=== PATIENT | female | born 1945 | race African-American/Black ===

== ENCOUNTER 2019-07-15 16:09 | Inpatient (IN) | payer OTHER, MEDICARE ==
[~2019-07-15] VITALS: Ht 157.5 cm; Wt 52.6 kg
[~2019-07-15 16:09] MED LIST: ACETAMINOPHEN500 MG PO; AMLODIPINE BESY10 MG PO; BYSTOLIC10 MG PO; ULTRAM50 MG PO
--- OUTSIDE RECORDS SUMMARY | 2019-07-15 16:12 | XMS REPORT ---
Author Author [facility] Organization [facility] Address [address] [place] [address] Phone Unavailable Care Team Providers Care L[place] Joiner Name Role Phone Unavailable Unavailable Payers Payer Name Policy Type Policy Number Effective Date Expiration Date S ource Problems This patient has no known problems. Allergies, Adverse Reactions, Alerts Allergy Name Allergy Type Status Severity Reaction(s) Onset Date Inacti ve Date Treating Clinician Comments Source No Known Allergies DA Active U 2018-09-25 00:00:00 [facility] Medications This patient has no known medications. Procedures This patient has no known procedures. Results Test Description Test Time Test Comments Results Result Comments Source - DUP AB/PEL/SC/LTD 2019-01-25 13:09:00 Name: PALMER BLAKE [facility] : 1945 Age/S: 73 / F [address] [place] [address] Blvd Unit #: [id number] Loc: [place] [address] Phys: Dhaval Bañuelos MD Acct: [id number] Dis Date: Status: REG CLI PHONE #: [phone] Exam Date: 01/25/2019 1251 FAX #: [phone] Reason: MENOPAUSAL BLEEDING EXAMS: CPT CODE: [id number] DUP AB/PEL/SC/LTD 09578 Exam: Pelvic ultrasound. Exam date: January 25, 2019. CLINICAL HISTORY: Postmenopausal bleeding. COMPARISON: CT scan abdomen and pelvis September 25, 2018. Real-time transabdominal and transvaginal imaging of the pelvis with spectral Doppler analysis and color-flow imaging demonstrates a 9.9 x 6.2 x 6.7 cm uterus. The endometrium measures 4.4 cm in greatest AP dimension. The endometrium is moderately heterogeneous with minimal blood flow identified within the endometrial echoes. The right ovary was not convincingly identified either transabdominally or transvaginally. The left ovary measures 2.3 x 0.9 x 1.7 cm and has a normal sonographic appearance. Blood flow is identified within the ovary.. No significant free fluid or adnexal masses are identified. IMPRESSION: Thickened endometrium for a truly postmenopausal patient. at 1309 Reported and signed by: Angelita Hook M.D. CC: Jelly Marroquin MD; Dhaval Bañuelos MD Technologist: Vidya Pugh RDMS(BR)(AB) Trnscb Date/Time: 01/25/2019 (4579) [email or web address] Orig Print D/T: S: 01/25/2019 (4846) Probe: PAGE 1 Signed Report - US TRANSVAGINAL NON OB 2019-01-25 13:09:00 N chantelle: LOUPALMER [facility] : 1945 Age/S: 73 / F [address] [place] [address] Unit #: [id number] Loc: [place] [address] Phys: Dhaval Bañuelos MD Acct: [id number] Dis Date: Status: REG CLI PHONE #: [phone] Exam Date: 01/25/2019 1257 FAX #: [phone] Reason: N95.0, MENOPAUSAL BLEEDING. EXAMS: CPT CODE: [id number] [place] [address] Exam: Pelvic ultrasound. Exam date: January 25, 2019. CLINICAL HISTORY: Postmenopausal bleeding. COMPARISON: CT scan abdomen and pelvis September 25, 2018. Real-time transabdominal and transvaginal imaging of the pelvis with spectral Doppler analysis and color-flow imaging demonstrates a 9.9 x 6.2 x 6.7 cm uterus. The endometrium measures 4.4 cm in greatest AP dimension. The endometrium is moderately heterogeneous with minimal blood flow identified within the endometrial echoes. The right ovary was not convincingly identified either transabdominally or transvaginally. The left ovary measures 2.3 x 0.9 x 1.7 cm and has a normal sonographic appearance. Blood flow is identified within the ovary.. No significant free fluid or adnexal masses are identified. IMPRESSION: Thickened endometrium for a truly postmenopausal patient. at 1309 Reported and signed by: Angelita Hook M.D. CC: Jelly Marroquin MD; Dhaval Bañuelos MD Technologist: Vidya Pugh RDMS(BR)(AB) Trnscb Date/Time: 01/25/2019 (7288) [email or web address] Orig Print D/T: S: 01/25/2019 (6752) Probe: [id number] PAGE 1 Signed Report - US PELVIS COMPLETE 2019-01-25 13:09:00 Name: PALMER BLAKE [facility] : 1945 Age/S: 73 / F [address] [place] [address] Unit #: [id number] Loc: [place] [address] Phys: Dhaval Bañuelos MD Acct: [id number] Dis Date: Status: REG CLI PHONE #: [phone] Exam Date: 01/25/2019 1250 FAX #: [phone] Reason: N95.0, MENOPAUSAL BLEEDING. EXAMS: CPT CODE: [id number] US PELVIS COMPLETE 43804 Exam: Pelvic ultrasound. Exam date: January 25, 2019. CLINICAL HISTORY: Postmenopausal bleeding. COMPARISON: CT scan abdomen and pelvis September 25, 2018. Real-time transabdominal and transvaginal imaging of the pelvis with spectral Doppler analysis and color-flow imaging demonstrates a 9.9 x 6.2 x 6.7 cm uterus. The endometrium measures 4.4 cm in greatest AP dimension. The endometrium is moderately heterogeneous with minimal blood flow identified within the endometrial echoes. The right ovary was not convincingly identified either transabdominally or transvaginally. The left ovary measures 2.3 x 0.9 x 1.7 cm and has a normal sonographic appearance. Blood flow is identified within the ovary.. No significant free fluid or adnexal masses are identified. IMPRESSION: Thickened endometrium for a truly postmenopausal patient. at 1309 Reported and signed by: Angelita Hook M.D. CC: Jelly Marroquin MD; Dhaval Bañuelos MD Technologist: Vidya Pugh RDMS(BR)(AB) Trnscb Date/Time: 01/25/2019 (8405) [email or web address] Orig Print D/T: S: 01/25/2019 (0090) Probe: PAGE 1 Signed Report URINALYSIS COMPLETE 2018-09-25 09:18:00 Test Item UA COLOR (test code = COLU) YELLOW YEL/STRAW UA APPEARANCE (test code = APPU) SL CLOUDY CLEAR UA GLUCOSE DIPSTICK (test code = DGLUU) NEGATIVE NEGATIVE UA BILIRUBIN DIPSTICK (test code = BILU) NEGATIVE NEGATIVE UA KETONE DIPSTICK (test code = KETU) NEGATIVE NEGATIVE UA SPECIFIC GRAVITY (test code = SGU) 1.019 1.005-1.030 N UA BLOOD DIPSTICK (test code = SANDY) 3+ NEGATIVE A UA PH DIPSTICK (test code = EDWIGE) 5.0 5.0-7.0 N UA PROTEIN DIPSTICK (test code = PROU) NEGATIVE NEGATIVE UA UROBILINIOGEN DIPSTICK (test code = URO) 0.2 mg/dL 0.2-1.0 UA NITRITE DIPSTICK (test code = NADIA) NEGATIVE NEGATIVE UA LEUKOCYTE ESTERASE DIPSTICK (test code = LEUU) 3+ NEGA TIVE A UA WBC (test code = WBCU) >50 WBC/HPF 0-3 A UA RBC (test code = RBCU) >50 RBC/HPF 0-3 A UA BACTERIA (test code = BACU) NONE SEEN /HPF NONE SEEN UA SQUAMOUS CELLS (test code = SQU) 0-5 /HPF NONE SEEN UA HYALINE CAST (test code = HYALU) 3-5 /LPF NONE SEEN UA MUCUS (test code = MUCU) TRACE /LPF NONE SEEN COMMENTS: Clean CatchHEPATIC FUNCTION [id number] 09:16:00* Test Item Value Reference Range Interpretation Comments TOTAL PROTEIN (test code = PROT) 8.1 g/dL 6.4-8.2 N ALBUMIN (test code = ALB) 3.40 g/dL 3.4-5.0 N BILIRUBIN TOTAL (test code = BILT) 0.20 mg/dL 0.0-1.0 N BILIRUBIN DIRECT (test code = BILD) < 0.10 MG/DL 0.0-0.30 N BILIRUBIN INDIRECT (test code = BILIND) 0.10 MG/DL SGOT/AST (test code = AST) 18 IUnit/L 15-37 N SGPT/ALT (test code = ALT) 14 IUnit/L 15-65 L ALKALINE PHOSPHATASE TOTAL (test code = ALKP) 123 IUnit/L 20-125 N [id number] 09:16:00* Test Item Value Reference Range Interpretation Comments LIPASE (test code = LIP) 233 IUnit/L 73-393 N CBC W/AUTO [id number] 09:07:00* Test Item Value Reference Range Interpretation Comments WHITE BLOOD CELL (test code = WBC) 10.26 x10 3/uL 4.5-11.0 N RED BLOOD CELL (test code = RBC) 4.71 x10 6/uL 3.54-5.02 N HEMOGLOBIN (test code = HGB) 13.2 g/dL 11.0-15.0 N HEMATOCRIT (test code = HCT) 42.4 % 33.0-45.0 N MEAN CELL VOLUME (test code = MCV) 90.0 fL 81.0-99.0 N MEAN CELL HGB (test code = MCH) 28.0 pg 27.0-33.0 N MEAN CELL HGB CONCETRATION (test code = MCHC) 31.1 g/dL 33.0-37. 0 L RED CELL DISTRIBUTION WIDTH CV (test code = RDW) 16.1 % 11.5- 14.5 H RED CELL DISTRIBUTION WIDTH SD (test code = RDW-SD) 53.5 fL 37 .0-54.0 N PLATELET COUNT (test code = PLT) 306 x10 3/uL 150-400 N MEAN PLATELET VOLUME (test code = MPV) 10.0 fL 7.0-9.0 H NEUTROPHIL % (test code = NT%) 82.6 % 56.0-77.0 H IMMATURE GRANULOCYTE % (test code = IG%) 0.7 % 0.0-2.0 N LYMPHOCYTE % (test code = LY%) 9.2 % 14.0-32.0 L MONOCYTE % (test code = MO%) 6.0 % 4.8-9.0 N EOSINOPHIL % (test code = EO%) 0.9 % 0.3-3.7 N BASOPHIL % (test code = BA%) 0.6 % 0.0-2.0 N NUCLEATED RBC % (test code = NRBC%) 0.0 % 0-0 N NEUTROPHIL # (test code = NT#) 8.48 x10 3/uL 2.0-7.6 H IMMATURE GRANULOCYTE # (test code = IG#) 0.07 x10 3/uL 0.00-0.03 H LYMPHOCYTE # (test code = LY#) 0.94 x10 3/uL 1.0-3.8 L MONOCYTE # (test code = MO#) 0.62 x10 3/uL 0.1-0.8 N EOSINOPHIL # (test code = EO#) 0.09 x10 3/uL 0.0-0.2 N BASOPHIL # (test code = BA#) 0.06 x10 3/uL 0.0-0.2 N NUCLEATED RBC # (test code = NRBC#) 0.00 x10 3/uL 0.0-0.1 N MANUAL DIFF REQUIRED (test code = MDIFF) NO - CT ABD PELVIS [id number] 08:32:00 Name: PALMER BLAKE [facility] : 1945 Age/S: 73 / F [address] [place] [address] Unit #: [id number] Loc: [place] [address] Phys: Cynthia Che MD Acct: [id number] Dis Date: Status: REG ER PHONE #: [phone] Exam Date: 09/25/2018 0807 FAX #: [phone] Reason: diffuse abd pain in elderly pt EXAMS: CPT CODE: [id number] CT ABD PELVIS W/CONT 94021 EXAM: CT ABDOMEN AND PELVIS WITH CONTRAST DATE: 09/25/2018 7:09 AM : 1945; Age: 73 years y/o Female INDICATION: diffuse abd pain in elderly pt COMPARISON: None. TECHNIQUE: Volumetric CT of the abdomen and pelvis is acquired following the intravenous administration of contrast. Axial, coronal and sagittal images are provided. IV contrast: 100 mL Isovue Enteric contrast: None. DLP: 289 mGy-cm CT imaging performed at this location utilizes radiation dose optimization techniques which include one or more of the following: -Automated exposure control - Adjustment of the mA and/or kV according to patient size -Use of iterative reconstruction technique FINDINGS: Lower thorax: Clear. Liver: Normal. Gallbladder: No calcified stones or wall thickening. Adrenals: Normal. Kidneys and ureters: Atrophic right kidney is seen. Small simple cyst in the left midpole. Spleen: Normal. Pancreas: Normal. Gastrointestinal tract: Stomach: Not well distended which limits evaluation Small bowel: Normal. Appendix: Not seen. No inflammation. Colon: Normal. Peritoneum, mesentery and retroperitoneum: No free air, PAGE 1 Signed Report (CONTINUED) Name: PALMER BLAKE [facility] : 1945 Age/S: 73 / F [address] [place] [address] Unit #: [id number] Loc: [place] [address] Phys: Cynthia Che MD Acct: [id number] Dis Date: Status: REG ER PHONE #: [phone] Exam Date: 09/25/2018 0807 FAX #: [phone] Reason: diffuse abd pain in elderly pt EXAMS: CPT CODE: [id number] CT ABD PELVIS W/CONT 29068 < Continued> lymphadenopathy, ascites or loculated fluid. Reproductive organs: Central endometrial low-attenuation is seen measuring up to 3.7 cm. No adnexal mass. Bladder: Decompressed or not fully distended. Soft tissues: Normal. Bones: No acute abnormality. Age-related degenerative findings. IMPRESSION: 1. No acute intra-abdominal process. 2. Central low-attenuation within the endometrium measuring up to 3.7 cm. Endometrial malignancy cannot be excluded. Further evaluation with nonemergent pelvic ultrasound is recommended. 3. Atrophic right kidney. SL: [id number] at 0832 Reported and signed by: Unique Marroquin D.O. CC: Cynthia Che MD Technologist:Wili Monterroso, RT(R) CTDI: DLP: Trnscb Date/Time: 09/25/2018 (08) [email or web address] Orig Print D/T: S: 09/25/2018 (0882) PAGE 2 Signed Report CHEMISTRY 8 [id number] 07:46:00* Test Item Value Reference Range Interpretation Comments ISTAT-SODIUM (test code = NAP) MMOL/L 134-147 ISTAT-POTASSIUM (test code = KP) MMOL/L 3.4-5.0 ISTAT-CHLORIDE (test code = CLP) MMOL/L 100-108 ISTAT CARBON DIOXIDE (test code = ISTAT-CO2) mmol/L 21-33 N ISTAT CALCIUM IONIZED (test code = ISTAT-HORTENCIA) MG/DL 1.12-1.3 2 ISTAT-GLUCOSE (test code = GLUP) MG/DL 70-110 N ISTAT-BUN (test code = BUNP) MG/DL 7-18 N BEDSIDE CREATININE (test code = CREATBED) MG/DL 0.6-1.3 H GLOMERULAR FILTRATION RATE POC (test code = GFRBED) 47 ML/MIN CHEMISTRY 8 [id number] 07:46:00* Test Item Value Reference Range Interpretation Comments ISTAT-SODIUM (test code = NAP) 143 MMOL/L 134-147 N ISTAT-POTASSIUM (test code = KP) 4.0 MMOL/L 3.4-5.0 N ISTAT-CHLORIDE (test code = CLP) 110 MMOL/L 100-108 H Performed by certified cable ferry operator at [facility] ISTAT CARBON DIOXIDE (test code = ISTAT-CO2) 22.0 mmol/L 21-33 N ISTAT CALCIUM IONIZED (test code = ISTAT-HORTENCIA) 1.10 MG/DL 1.12-1.3 2 L ISTAT-GLUCOSE (test code = GLUP) 110 MG/DL 70-110 N ISTAT-BUN (test code = BUNP) 11 MG/DL 7-18 N BEDSIDE CREATININE (test code = CREATBED) 1.4 MG/DL 0.6-1.3 H GLOMERULAR FILTRATION RATE POC (test code = GFRBED) 47 ML/MIN
--- NOTE | 2019-07-15 17:12 | Emergency Department Note ---
History of Present Illnes History of Present Illness Chief Complaint: Abdominal Complaints History of Present Illness This is a 74 year old female . Chief Complaint Comment sent from dr's office with labs with wbc 24k. abd pain. aaox4. ambulatory.+diarrhea. abd pain lower. no uti s/s Historian: Patient, Family Member Arrival Mode: Car Onset (how long ago): day(s) (few days) Radiation: non-radiation, back, neck, extremity, abdomen, periumbilical, flank, proximal, distal, other Severity: mild Onset quality: gradual Duration (how long): day(s) (few days) Timing of current episode: constant Progression: unchanged Context: recent illness, recent surgery, recent immobilization, recent travel, trauma/injury, new medications, hx of DVT/PE, non-compliance w/ medications, other Relieving factors: none Exacerbating factors: none Associated symptoms: other (diarrhea ) Treatments prior to arrival: none (JOLENE NEVES DO) Historian: Patient, Family Member Context: trauma/injury (ERWIN KINNEY DO) Past Medical/Family History Physician Review I have reviewed the patient's past medical and family history. Any updates have been documented here. (JOLENE NEVES DO) Past Medical History Recent Fever: No Clinical Suspicion of Infectio: No New/Unexplained Change in Ment: No Other Medical History: diverticulitis (JOLENE NEVES DO) Social History Smoking Cessation: Never Smoker Alcohol Use: None Any Illegal Drug Use: No TB Exposure/Symptoms: No (JOLENE NEVES DO) Family History Family history of heart diseas: No (JOLENE NEVES, ) Other Any Pre-Existing Lines (PICC,: No (JOLENE NEVES, ) Review of Systems Review of Systems Constitutional: no symptoms EENTM: no symptoms Cardiovascular: no symptoms Respiratory: no symptoms Gastrointestinal: abdominal pain, diarrhea Genitourinary: no symptoms Musculoskeletal: no symptoms Neurological: no symptoms Psychological: no symptoms Endocrine: no symptoms Hematological/Lymphatic: no symptoms Review of other systems All other systems reviewed and negative. (JOLENE NEVES DO) Physical Exam Related Data Allergies: Coded Allergies: No Known Allergies (Unverified , 02/22/19) Triage Vital Signs Vital Signs Date Time Temp Pulse Resp B/P (MAP) Pulse Ox O2 Delivery O2 Flow Rate FiO2 07/15/19 16:22 97.8 78 14 101/54 99 Vital signs reviewed: Yes (JOLENE NEVES DO) Physical Exam CONSTITUTIONAL Constitutional: well-developed, well-nourished HENT HENT: normocephalic, atraumatic, oropharynx clear/moist, nose normal HENT L/R: left ext ear normal, right ext ear normal EYES Eyes: PERRL, conjunctivae normal NECK Neck: ROM normal PULMONARY Pulmonary: effort normal, breath sounds normal CARDIOVASCULAR Cardiovascular: regular rhythm, heart sounds normal, capillary refill normal, normal rate GASTROINTESTINAL Abdominal: soft, bowel sounds normal, tender (mnima lower abd sts feels hard to her) GENITOURINARY Genitourinary: exam deferred SKIN Skin: warm, dry MUSCULOSKELETAL Musculoskeletal: ROM normal NEUROLOGICAL Neurological: alert, oriented x 3, no gross motor or sensory deficits PSYCHOLOGICAL Psychological: mood/affect normal, judgement normal Exam - additional comments sts was sent to ed for eval had lab drawn few days ago has WBC 24 (JOLENE NEVES, ) Results Laboratory Laboratory Laboratory Tests Test 07/15/19 17:00 White Blood Count 25.65 x10e3/uL (4.8-10.8) Red Blood Count 2.85 x10e6/uL (3.6-5.1) Hemoglobin 6.9 g/dL (12.0-16.0) Hematocrit 23.2 % (34.2-44.1) Mean Corpuscular Volume 81.4 fL (81-99) Mean Corpuscular Hemoglobin 24.2 pg (28-32) Mean Corpuscular Hemoglobin Concent 29.7 g/dL (31-35) Red Cell Distribution Width 15.9 % (11.7-14.4) Platelet Count 537 x10e3/uL (140-360) Neutrophils (%) (Auto) 87.5 % (38.7-80.0) Lymphocytes (%) (Auto) 5.2 % (18.0-39.1) Monocytes (%) (Auto) 5.8 % (4.4-11.3) Eosinophils (%) (Auto) 0.0 % (0.0-6.0) Basophils (%) (Auto) 0.3 % (0.0-1.0) Neutrophils # (Auto) 22.4 (2.1-6.9) Lymphocytes # (Auto) 1.3 (1.0-3.2) Monocytes # (Auto) 1.5 (0.2-0.8) Eosinophils # (Auto) 0.0 (0.0-0.4) Basophils # (Auto) 0.1 (0.0-0.1) Absolute Immature Granulocyte (auto 0.30 x10e3/uL (0-0.1) Sodium Level 137 mmol/L (136-145) Potassium Level 5.0 mmol/L (3.5-5.1) Chloride Level 100 mmol/L (98-107) Carbon Dioxide Level 25 mmol/L (22-29) Anion Gap 17.0 mmol/L (8-16) Blood Urea Nitrogen 25 mg/dL (7-26) Creatinine 1.19 mg/dL (0.57-1.11) Estimat Glomerular Filtration Rate 54 ML/MIN (60-) BUN/Creatinine Ratio 21 (6-25) Glucose Level 105 mg/dL (74-118) Calcium Level 9.5 mg/dL (8.4-10.2) Total Bilirubin 0.2 mg/dL (0.2-1.2) Aspartate Amino Transf (AST/SGOT) 22 IU/L (5-34) Alanine Aminotransferase (ALT/SGPT) 14 IU/L (0-55) Alkaline Phosphatase 79 IU/L (40-150) Total Protein 7.0 g/dL (6.5-8.1) Albumin 1.7 g/dL (3.5-5.0) Globulin 5.3 g/dL (2.3-3.5) Albumin/Globulin Ratio 0.3 (0.8-2.0) Lab results reviewed: Yes (JOLENE NEVES DO) Lab results reviewed: Yes Laboratory comments Laboratory Tests Test 07/15/19 22:20 07/15/19 20:30 07/15/19 19:45 07/15/19 17:00 Lactic Acid Level 1.5 mmol/L (0.5-2.0) 2.3 mmol/L (0.5-2.0) White Blood Count 25.65 x10e3/uL (4.8-10.8) Red Blood Count 2.85 x10e6/uL (3.6-5.1) Hemoglobin 6.9 g/dL (12.0-16.0) Hematocrit 23.2 % (34.2-44.1) Mean Corpuscular Volume 81.4 fL (81-99) Mean Corpuscular Hemoglobin 24.2 pg (28-32) Mean Corpuscular Hemoglobin Concent 29.7 g/dL (31-35) Red Cell Distribution Width 15.9 % (11.7-14.4) Platelet Count 537 x10e3/uL (140-360) Neutrophils (%) (Auto) 87.5 % (38.7-80.0) Lymphocytes (%) (Auto) 5.2 % (18.0-39.1) Monocytes (%) (Auto) 5.8 % (4.4-11.3) Eosinophils (%) (Auto) 0.0 % (0.0-6.0) Basophils (%) (Auto) 0.3 % (0.0-1.0) Neutrophils # (Auto) 22.4 (2.1-6.9) Lymphocytes # (Auto) 1.3 (1.0-3.2) Monocytes # (Auto) 1.5 (0.2-0.8) Eosinophils # (Auto) 0.0 (0.0-0.4) Basophils # (Auto) 0.1 (0.0-0.1) Absolute Immature Granulocyte (auto 0.30 x10e3/uL (0-0.1) Sodium Level 137 mmol/L (136-145) Potassium Level 5.0 mmol/L (3.5-5.1) Chloride Level 100 mmol/L (98-107) Carbon Dioxide Level 25 mmol/L (22-29) Anion Gap 17.0 mmol/L (8-16) Blood Urea Nitrogen 25 mg/dL (7-26) Creatinine 1.19 mg/dL (0.57-1.11) Estimat Glomerular Filtration Rate 54 ML/MIN (60-) BUN/Creatinine Ratio 21 (6-25) Glucose Level 105 mg/dL (74-118) Calcium Level 9.5 mg/dL (8.4-10.2) Total Bilirubin 0.2 mg/dL (0.2-1.2) Aspartate Amino Transf (AST/SGOT) 22 IU/L (5-34) Alanine Aminotransferase (ALT/SGPT) 14 IU/L (0-55) Alkaline Phosphatase 79 IU/L (40-150) Creatine Kinase 10 IU/L (29-168) Creatine Kinase MB 0.20 ng/mL (0-5.0) Troponin I < 0.001 ng/mL (0-0.300) Total Protein 7.0 g/dL (6.5-8.1) Albumin 1.7 g/dL (3.5-5.0) Globulin 5.3 g/dL (2.3-3.5) Albumin/Globulin Ratio 0.3 (0.8-2.0) (ERWIN KINNEY DO) Imaging Imaging results reviewed: Yes Impressions [place] [address] Patient Name: PALMER BLAKE MR #: [id number] : 1945 Age/Sex: 74/F Req #: [id number] Adm Physician: Ordered by: JOLENE NEVES DO Report #: [id number] Location: ER Room/Bed: Procedure: [id number] CT/CT ABDOMEN/PELVIS W Exam Date: 07/15/19 Exam Time: 1814 REPORT STATUS: Signed EXAMINATION: CT of the abdomen and pelvis with contrast. TECHNIQUE: Spiral CT images of the abdomen and pelvis were performed from the lung bases to the lesser trochanters after the intravenous administration of 100 cc of Isovue 370 and the oral administration of dilute Gastrografin. Coronal and sagittal reformatted images were obtained. COMPARISON: None. CLINICAL HISTORY:Abdominal pain, elevated WBC count DISCUSSION: ABDOMEN/PELVIS: LOWER THORAX:7 mm calcified granuloma in the right lower lobe. HEPATOBILIARY: Wedge-shaped hypodensity adjacent to the falciform ligament (series 2, image 19), likely represents focal fatty infiltration. 3 mm calcified granuloma in hepatic segment VII (series 2, image 12). No other focal hepatic lesions. No intra or extrahepatic biliary ductal dilation. GALLBLADDER: No radio-opaque stones or sludge. No wall thickening. SPLEEN: No splenomegaly. PANCREAS: No focal masses or ductal dilatation. ADRENALS: 1.0 cm hypodense nodule in the right adrenal gland (best visualized on sagittal image 64). Left adrenal gland is unremarkable. KIDNEYS/URETERS: Atrophic right kidney with marked cortical thinning and moderate scarring. No stones, hydronephrosis or evidence of obstruction. Left kidney shows no stones, hydronephrosis or obstruction. No solid enhancing masses. No perinephric stranding. PELVIC ORGANS/BLADDER: Bladder is decompressed and difficult to assess, however, no definite focal lesions are noted. There is an approximately 11.6 x 18.6 x 13.6 cm predominantly solid mass in pelvis, which appears to involve the uterus and extending to the cervix, with central hypodensity, and scattered internal air foci consistent with necrosis and/or infection (sagittal image 73, axial image 60 and coronal image 45). The ovaries are not visualized. PERITONEUM/RETROPERITONEUM: No free air or fluid. LYMPH NODES: No intra-abdominal, retroperitoneal, pelvic or inguinal lymphadenopathy. VESSELS: The celiac trunk,superior and inferior mesenteric and bilateral renal arteries are patent The portal, superior mesenteric and splenic veins are patent. Atherosclerotic calcification of the distal abdominal aorta. GI TRACT: No bowel dilation or evidence of obstruction. Large amount of retained stool in the colon, likely reflecting constipation. No pericolonic inflammatory changes. Stomach is unremarkable. BONES AND SOFT TISSUE: No aggressive lytic or suspicious focal sclerotic lesions. Generalized osteopenia. Moderate right and mild left hip degenerative changes. Mild generalized soft tissue edema. IMPRESSION: 1. Large solid/partially necrotic mass in the pelvis, which appears to involve the uterus and extending to the cervix. This may represent cervical or endometrial neoplasm, or a leiomyosarcoma, if there is prior history of fibroids. A less likely alternative is an ovarian neoplasm. Multiple foci of air in the central and some peripheral portion of the mass may be secondary to necrosis, however, superimposed infection is a consideration. 2. Indeterminate 1.0 cm hypodense nodule in the right adrenal gland. This may further assessed with CT adrenal mass protocol on a nonemergent basis. 3. Atrophic right kidney. Signed by: Dr. Balbir Varghese M.D. on 07/15/2019 7:03 PM Dictated By: BALBIR VARGHESE MD 02 Transcribed By: CEASAR on 07/15/191902 COPY TO: JOLENE NEVES DO~ (ERWIN KINNEY DO) Critical Care Time Subsequent provider I assumed direction of critical care for this patient from another provider of my specialty. (JOLENE NEVES DO) Subsequent provider care assumed from Dr Neves at 1900 07/15/2019 (ERWIN KINNEY DO) Assessment & Plan Reassessment Reassessment time: 17:11 Reassessment 74y f presented to ed c/o abd pain diarrhea for several days - sent to ed w/ report of wbc 24- lab ct ordered / blood cultures lactic pt medicated w/ flagyl and zosyn (JOLENE NEVES DO) Assessment & Plan Final Impression: (1) Leukocytosis Assessment & Plan spoke w/ Dr Dangelo will admit (JOLENE NEVES DO) Final Impression: (1) Leukocytosis (2) Anemia (3) Pelvic cancer Assessment & Plan case d/w with Dr Herbert Dangelo and Dr Sheikh who agreed to see patient. Plan to admit to the hospital for further evaluation (ERWIN KINNEY DO) Depart Disposition: ADMITTED Last Vital Signs Date Time Temp Pulse Resp B/P (MAP) Pulse Ox O2 Delivery O2 Flow Rate FiO2 07/15/19 16:22 97.8 78 14 101/54 99 (JOLENE NEVES DO) Home Meds Reported Medications Nebivolol Hcl (BYSTOLIC) 10 Mg Tablet, 20 MG PO DAILY, TAB 02/22/19 Amlodipine Besylate (AMLODIPINE BESYLATE) 10 Mg Tablet, 10 MG PO DAILY, #30 TAB 02/22/19 Tramadol Hcl (ULTRAM) 50 Mg Tablet, 50 MG PO PRN, TAB 02/22/19 Acetaminophen (ACETAMINOPHEN) 500 Mg Tablet, 1000 MG PO PRN THERAPEUTICALLY SUBSTITUTED WITH ACETAMINOPHEN 325MG 02/22/19 Medications in the ED Diatrizoate Meglum/ Diatrizoate Sod 30 ml STK-MED ONCE PO ; Start 5/21/20 at 17:22; Stop 07/15/19 at 17:16; Status DC Metronidazole/ Sodium Chloride 100 ml @ 100 mls/hr ONCE ONCE IV Last administered on 07/15/19at 20:56; Admin Dose 100 MLS/HR; Start 07/15/19 at 17:56; Stop 07/15/19 at 18:55; Status DC Piperacillin Sod/ Tazobactam Sod 50 ml @ 50 mls/hr NOW ONCE IV Last administered on 07/15/19at 20:28; Admin Dose 50 MLS/HR; Start 07/15/19 at 18:15; Stop 07/15/19 at 19:14; Status DC (ERWIN KINNEY DO) JOLENE NEVES DO July 15, 2019 17:12 ERWIN KINNEY DO July 15, 2019 19:38
[2019-07-15 17:15] LABS: BASOPHILS # (AUTO) 0.1 (0.0-0.1); BASOPHILS % 0.3 % (0.0-1.0); HEMATOCRIT 23.2 % (34.2-44.1); LYMPHOCYTES # (AUTO) 1.3 (1.0-3.2); LYMPHOCYTES % 5.2 % (18.0-39.1); MEAN CORPUSCULAR HEMOGLOBIN 24.2 pg (28-32); MEAN CORPUSCULAR HGB CONC 29.7 g/dL (31-35); MEAN CORPUSCULAR VOLUME 81.4 fL (81-99); MONOCYTES # (AUTO) 1.5 (0.2-0.8); MONOCYTES % 5.8 % (4.4-11.3); NEUTROPHILS # (AUTO) 22.4 (2.1-6.9); NEUTROPHILS % 87.5 % (38.7-80.0); PLATELET COUNT 537 x10e3/uL (140-360); RED BLOOD COUNT 2.85 x10e6/uL (3.6-5.1); RED CELL DISTRIBUTION WIDTH 15.9 % (11.7-14.4)
[2019-07-15] MEDS ORDERED: DIATRIZOATE MEGL/DIATRIZOA SOD 30 ML BTL PO ONE (17:22)
[2019-07-15 17:26] LABS: HEMOGLOBIN 6.9 g/dL (12.0-16.0)
[2019-07-15 17:27] LABS: ALBUMIN 1.7 g/dL (3.5-5.0); ALBUMIN/GLOBULIN RATIO 0.3 (0.8-2.0); CALCIUM 9.5 mg/dL (8.4-10.2); CREATININE, SERUM 1.19 mg/dL (0.57-1.11)
[2019-07-15] MEDS ORDERED: METRONIDAZOLE 500MG/NS 100ML 100 ML IV ONE (17:56)
[2019-07-15] MEDS ORDERED: PIPER-TAZ 3.375 GM 50 ML IV ONE (18:15)
--- NOTE | 2019-07-15 19:07 | Diagnostic Imaging Report ---
EXAMINATION: CT of the abdomen and pelvis with contrast. TECHNIQUE: Spiral CT images of the abdomen and pelvis were performed from the lung bases to the lesser trochanters after the intravenous administration of 100 cc of Isovue 370 and the oral administration of dilute Gastrografin. Coronal and sagittal reformatted images were obtained. COMPARISON: None. CLINICAL HISTORY:Abdominal pain, elevated WBC count DISCUSSION: ABDOMEN/PELVIS: LOWER THORAX:7 mm calcified granuloma in the right lower lobe. HEPATOBILIARY: Wedge-shaped hypodensity adjacent to the falciform ligament (series 2, image 19), likely represents focal fatty infiltration. 3 mm calcified granuloma in hepatic segment VII (series 2, image 12). No other focal hepatic lesions. No intra or extrahepatic biliary ductal dilation. GALLBLADDER: No radio-opaque stones or sludge. No wall thickening. SPLEEN: No splenomegaly. PANCREAS: No focal masses or ductal dilatation. ADRENALS: 1.0 cm hypodense nodule in the right adrenal gland (best visualized on sagittal image 64). Left adrenal gland is unremarkable. KIDNEYS/URETERS: Atrophic right kidney with marked cortical thinning and moderate scarring. No stones, hydronephrosis or evidence of obstruction. Left kidney shows no stones, hydronephrosis or obstruction. No solid enhancing masses. No perinephric stranding. PELVIC ORGANS/BLADDER: Bladder is decompressed and difficult to assess, however, no definite focal lesions are noted. There is an approximately 11.6 x 18.6 x 13.6 cm predominantly solid mass in pelvis, which appears to involve the uterus and extending to the cervix, with central hypodensity, and scattered internal air foci consistent with necrosis and/or infection (sagittal image 73, axial image 60 and coronal image 45). The ovaries are not visualized. PERITONEUM/RETROPERITONEUM: No free air or fluid. LYMPH NODES: No intra-abdominal, retroperitoneal, pelvic or inguinal lymphadenopathy. VESSELS: The celiac trunk,superior and inferior mesenteric and bilateral renal arteries are patent The portal, superior mesenteric and splenic veins are patent. Atherosclerotic calcification of the distal abdominal aorta. GI TRACT: No bowel dilation or evidence of obstruction. Large amount of retained stool in the colon, likely reflecting constipation. No pericolonic inflammatory changes. Stomach is unremarkable. BONES AND SOFT TISSUE: No aggressive lytic or suspicious focal sclerotic lesions. Generalized osteopenia. Moderate right and mild left hip degenerative changes. Mild generalized soft tissue edema. IMPRESSION: 1. Large solid/partially necrotic mass in the pelvis, which appears to involve the uterus and extending to the cervix. This may represent cervical or endometrial neoplasm, or a leiomyosarcoma, if there is prior history of fibroids. A less likely alternative is an ovarian neoplasm. Multiple foci of air in the central and some peripheral portion of the mass may be secondary to necrosis, however, superimposed infection is a consideration. 2. Indeterminate 1.0 cm hypodense nodule in the right adrenal gland. This may further assessed with CT adrenal mass protocol on a nonemergent basis. 3. Atrophic right kidney. Signed by: Dr. Wallace Varghese M.D. on 07/15/2019 7:03 PM
[2019-07-15] MEDS ORDERED: MORPHINE SULFATE 2 MG/ML SYR 1ML IV PRN (20:00)
[2019-07-15] MEDS ORDERED: ASPIRIN 81 MG CHEW TAB PO ONE (20:00)
--- OUTSIDE RECORDS SUMMARY | 2019-07-15 20:03 | XMS REPORT ---
Author Author [facility] t Organization [facility] Address [address] [place] [address] Phone Unavailable Care Team Providers Care Instrument Designer Name Role Phone Joesph NEVES Attphyjoesph Unavailable Payers Payer Name Policy Type Policy Number Effective Date Expiration Date S ource Problems This patient has no known problems. Allergies, Adverse Reactions, Alerts Allergy Name Allergy Type Status Severity Reaction(s) Onset Date Inacti ve Date Treating Clinician Comments Source No Known Allergies DA Active U 2018-09-25 00:00:00 [facility] Medications This patient has no known medications. Procedures This patient has no known procedures. Results Test Description Test Time Test Comments Results Result Comments Source CT ABDOMEN/PELVIS W 2019-07-15 18:49:00 [facility] [address] [place], [place] [address] Patient Name: PALMER BLAKE MR #: [id number] : 1945 Age/Sex: 74/F Req #: [id number] Adm Physician: Ordered by: JOLENE NEVSE DO Report #: [id number] Location: ER Room/Bed: Procedure: [id number] CT/CT ABDOMEN/PELVIS W Exam Date: 07/15/19 Exam Time: 1814 REPORT STATUS: Signed EXAMINATION: CT of the abdomen and pelvis with contrast. TECHNIQUE: Spiral CT images of the abdomen and pelvis were performed from the lung bases to the lesser trochanters after the intravenous administration of 100 cc of Isovue 370 and the oral administration of dilute Gastrografin. Coronal and sagittal reformatted images were obtained. COMPARISON: None. CLINICAL HISTORY:Abdominal pain, elevated WBC count DISCUSSION: ABDOMEN/PELVIS: LOWER THORAX:7 mm calcified granuloma in the right lower lobe. HEPATOBILIARY: Wedge-shaped hypodensity adjacent to the falciform ligament (series 2, image 19), likely represents focal fatty infiltration. 3 mm calcified granuloma in hepatic segment VII (series 2, image 12). No other focal hepatic lesions. No intra or extrahepatic biliary ductal dilation. GALLBLADDER: No radio-opaque stones or sludge. No wall thickening. SPLEEN: No splenomegaly. PANCREAS: No focal masses or ductal dilatation. ADRENALS: 1.0 cm hypodense nodule in the right adrenal gland (best visualized on sagittal image 64). Left adrenal gland is unremarkable. KIDNEYS/URETERS: Atrophic right kidney with marked cortical thinning and moderate scarring. No stones, hydronephrosis or evidence of obstruction. Left kidney shows no stones, hydronephrosis or obstruction. No solid enhancing masses. No perinephric stranding. PELVIC ORGANS/BLADDER: Bladder is decompressed and difficult to assess, however, no definite focal lesions are noted. There is an approximately 11.6 x 18.6 x 13.6 cm predominantly solid mass in pelvis, which appears to involve the uterus and e xtending to the cervix, with central hypodensity, and scattered internal air foci consistent with necrosis and/or infection (sagittal image 73, axial image 60 and coronal image 45). The ovaries are not visualized. PERITONEUM/RETROPERITONEUM: No free air or fluid. LYMPH NODES: No intra- abdominal, retroperitoneal, pelvic or inguinal lymphadenopathy. VESSELS: The celiac trunk,superior and inferior mesenteric and bilateral renal arteries are patent The portal, superior mesenteric and splenic veins are patent. Atherosclerotic calcification of the distal abdominal aorta. GI TRACT: No bowel dilation or evidence of obstruction. Large amount of retained stool in the colon, likely reflecting constipation. No pericolonic inflammatory changes. Stomach is unremarkable. BONES AND SOFT TISSUE: No aggressive lytic or suspicious focal sclerotic lesions. Generalized osteopenia. Moderate right and mild left hip degenerative changes. Mild generalized soft tissue edema. IMPRESSION: 1. Large solid/partially necrotic mass in the pelvis, which appears to involve the uterus and extending to the cervix. This may represent cervical or endometrial neoplasm, or a leiomyosarcoma, if there is prior history of fibroids. A less likely alternative is an ovarian neoplasm. Multiple foci of air in the central and some peripheral portion of the mass may be secondary to necrosis, however, superimposed infection is a consideration. 2. Indeterminate 1.0 cm hypodense nodule in the right adrenal gland. This may further assessed with CT adrenal mass protocol on a nonemergent basis. 3. Atrophic right kidney. Signed by: Dr. Wallace Varghese M.D. on 07/15/2019 7:03 PM Dictated By: WALLACE VARGHESE MD 02 Transcribed By: CEASAR on 07/15/191902 COPY TO: JOLENE NEVES DO - DUP AB/PEL/SC/LTD 2019-01-25 13:09:00 Name: PALMER BLAKE [facility] : 1945 Age/S: 73 / F [address] [place] [address] Unit #: [id number] Loc: [place] [address] Phys: Dhaval Bañuelos MD Acct: [id number] Dis Date: Status: REG CLI PHONE #: [phone] Exam Date: 01/25/2019 1251 FAX #: [phone] Reason: MENOPAUSAL BLEEDING EXAMS: CPT CODE: [id number] DUP AB/PEL/SC/LTD 84952 Exam: Pelvic ultrasound. Exam date: January 25, [...] Technologist: Vidya Pugh RDMS(BR)(AB) Trnscb Date/Time: 01/25/2019 (9345) t.CER Orig Print D/T: S: 01/25/2019 (0561) Probe: PAGE 1 Signed Report - US TRANSVAGINAL NON OB 2019-01-25 13:09:00 N chantelle: PALMER BLAKE [facility] : 1945 Age/S: 73 / F [address] [place] [address] Unit #: [id number] Loc: [place] [address] Phys: Dhaval Bañuelos MD Acct: [id number] Dis Date: Status: REG CLI PHONE #: [phone] Exam Date: 01/25/2019 1250 FAX #: [phone] Reason: N95.0, MENOPAUSAL BLEEDING. EXAMS: CPT CODE: [id number] [place] [address] Exam: Pelvic ultrasound. Exam date: January 25, [...] Technologist: Vidya Pugh RDMS(BR)(AB) Trnscb Date/Time: 01/25/2019 (2299) t.SDR.CER Orig Print D/T: S: 01/25/2019 (1312) Probe: [id number] PAGE 1 Signed Report - US PELVIS COMPLETE 2019-01-25 13:09:00 Name: PALMER BLAKE [facility] : 1945 Age/S: 73 / F [address] [place] [address] Unit #: [id number] Loc: [place] [address] Phys: Dhaval Bañuelos MD Acct: [id number] Dis Date: Status: REG CLI PHONE #: [phone] Exam Date: 01/25/2019 1250 FAX #: [phone] Reason: N95.0, MENOPAUSAL BLEEDING. EXAMS: CPT CODE: [id number] US PELVIS COMPLETE [address]2410 Exam: Pelvic ultrasound. Exam date: January 25, [...] Technologist: Vidya Pugh RDMS(BR)(AB) Trnscb Date/Time: 01/25/2019 (5427) Raad Orig Print D/T: S: 01/25/2019 (8549) Probe: PAGE 1 Signed Report URINALYSIS COMPLETE [...] /LPF NONE SEEN COMMENTS: Clean CatchHEPATIC FUNCTION [id number] 09:16:00* Test Item Value Reference Range Interpretation [...] code = ALKP) 123 IUnit/L 20-125 N [id number] 09:16:00* Test Item Value Reference Range Interpretation Comments LIPASE (test code = LIP) 233 IUnit/L 73-393 N CBC W/AUTO [id number] 09:07:00* Test Item Value Reference Range Interpretation [...] = MDIFF) NO - CT ABD PELVIS [id number] 08:32:00 Name: PALMER BLAKE [facility] : 1945 Age/S: 73 / F [address] [place] [address] Unit #: [id number] Loc: [place] [address] Phys: Cynthia Che MD Acct: [id number] Dis Date: Status: REG ER PHONE #: [phone] Exam Date: 09/25/2018 0807 FAX #: [phone] Reason: diffuse abd pain in elderly pt EXAMS: CPT CODE: [id number] CT ABD PELVIS W/CONT 78383 EXAM: CT ABDOMEN AND PELVIS WITH CONTRAST [...] 1 Signed Report (CONTINUED) Name: PALMER BLAKE [facility] : 1945 Age/S: 73 / F [address] [place] [address] Unit #: [id number] Loc: [place] [address] Phys: Cynthia Che MD Acct: [id number] Dis Date: Status: REG ER PHONE #: [phone] Exam Date: 09/25/2018806 FAX #: [phone] Reason: diffuse abd pain in elderly pt EXAMS: CPT CODE: [id number] CT ABD PELVIS W/CONT 48505 < Continued> lymphadenopathy, ascites or loculated fluid. [...] is recommended. 3. Atrophic right kidney. SL: [id number] at 0832 Reported and signed by: Unique Marroquin D.O. CC: Cynthia Che MD Technologist:Wili Monterroso, (R) CTDI: DLP: Trnscb Date/Time: 09/25/2018 (0832) [email or web address] Orig Print D/T: S: 09/25/2018 (0835) PAGE 2 Signed Report CHEMISTRY 8 [id number] 07:46:00* Test Item Value Reference Range Interpretation [...] code = GFRBED) 47 ML/MIN CHEMISTRY 8 [id number] 07:46:00* Test Item Value Reference Range Interpretation Comments ISTAT-SODIUM (test code = NAP) 143 MMOL/L 134-147 N ISTAT-POTASSIUM (test code = KP) 4.0 MMOL/L 3.4-5.0 N ISTAT-CHLORIDE (test code = CLP) 110 MMOL/L 100-108 H Performed by certified bullet assembly press setter operator at [facility] ISTAT CARBON DIOXIDE (test code = ISTAT-CO2) [...]
[2019-07-15] MEDS ORDERED: SODIUM CHLORIDE 0.9% 1000ML 1,000 ML IV STA (20:13)
[2019-07-15] MEDS ORDERED: SODIUM CHLORIDE 0.9% 250ML 250 ML IV ONE (20:15)
[2019-07-15 20:23] LABS: CREATINE KINASE 10 IU/L (29-168)
[2019-07-15] MEDS: ONDANSETRON HCL INJ 2MG/ML 2ML 2 MG/ML VIAL IV PRN (20:57)
[2019-07-15] MEDS: MORPHINE SULFATE INJ 4 MG/ML INJ 1ML IV PRN (20:57)
[2019-07-15] MEDS: SODIUM CHLORIDE 0.9% 1000ML 1,000 ML IV SCH (23:04)
--- NOTE | 2019-07-15 23:23 | NUR ---
REPORT RECIEVED FROM CARMELITA JARVIS, BLOOD UNITS ARE NOT READY AT THIS TIME, LAB WAS CALLED FOR AN ESTIMATED TIME OF READINESS.
[2019-07-16 02:16] LABS: BACTERIA,URINE MODERATE /HPF; COLOR,URINE YELLOW (YELLOW); EPITHELIAL CELLS,URINE FEW /LPF; RBC,URINE 21-50 /HPF (0-5); RENAL EPITHELIAL CELLS,URINE FEW; WBC,URINE (MAN) 21-50 /HPF (0-5)
[2019-07-16 02:17] LABS: BILIRUBIN,URINE NEGATIVE (NEGATIVE); CLARITY,URINE CLOUDY (CLEAR); KETONES,URINE NEGATIVE (NEGATIVE); LEUKOCYTE ESTERASE ,URINE 2+ (NEGATIVE); NITRITE,URINE NEGATIVE (NEGATIVE); PROTEIN,URINE DIPSTICK TRACE (NEGATIVE); URINE UROBILINOGEN 0.2 mg/dL (0.2 - 1)
[2019-07-16] MEDS ORDERED: SODIUM CHLORIDE 0.9% 250ML 250 ML ONE (02:32)
--- NOTE | 2019-07-16 04:27 | NUR ---
TWO BLOOD TRANSFUSION RECORDS COMPLETED AND PLACED ON CHART. PATIENT IN BED SLEEPING, NO DISTRESS NOTED.
[2019-07-16] MEDS: SODIUM CHLORIDE 0.9% 1000ML 1,000 ML IV SCH (04:29)
[2019-07-16 06:19] LABS: BASOPHILS # (AUTO) 0.1 (0.0-0.1); BASOPHILS % 0.3 % (0.0-1.0); EOSINOPHILS % 0.1 % (0.0-6.0); HEMATOCRIT 27.9 % (34.2-44.1); HEMOGLOBIN 8.6 g/dL (12.0-16.0); LYMPHOCYTES # (AUTO) 1.2 (1.0-3.2); LYMPHOCYTES % 4.8 % (18.0-39.1); MEAN CORPUSCULAR HEMOGLOBIN 25.8 pg (28-32); MEAN CORPUSCULAR HGB CONC 30.8 g/dL (31-35); MEAN CORPUSCULAR VOLUME 83.8 fL (81-99); MONOCYTES # (AUTO) 1.5 (0.2-0.8); MONOCYTES % 6.3 % (4.4-11.3); NEUTROPHILS # (AUTO) 21.2 (2.1-6.9); NEUTROPHILS % 87.3 % (38.7-80.0); PLATELET COUNT 413 x10e3/uL (140-360); RED BLOOD COUNT 3.33 x10e6/uL (3.6-5.1); RED CELL DISTRIBUTION WIDTH 16.4 % (11.7-14.4)
--- NOTE | 2019-07-16 06:39 | NUR ---
REPORT GIVEN TO SHEILA JARVIS
[2019-07-16 06:44] LABS: ALANINE AMINOTRANSFERASE 12 IU/L (0-55); ALBUMIN 1.6 g/dL (3.5-5.0); ALBUMIN/GLOBULIN RATIO 0.3 (0.8-2.0); ALKALINE PHOSPHATASE 70 IU/L (40-150); ANION GAP 13.4 mmol/L (8-16); BLOOD UREA NITROGEN 20 mg/dL (7-26); BUN/CREATININE RATIO 21 (6-25); CALCIUM 8.7 mg/dL (8.4-10.2); CARBON DIOXIDE 23 mmol/L (22-29); CHLORIDE 103 mmol/L (98-107); CREATININE, SERUM 0.95 mg/dL (0.57-1.11); EST GLOMERULAR FILTRATION RATE > 60 ML/MIN (60-); GLUCOSE 69 mg/dL (74-118); POTASSIUM 4.4 mmol/L (3.5-5.1); SODIUM 135 mmol/L (136-145)
[2019-07-16 06:55] LABS: CREATINE KINASE 22 IU/L (29-168)
[2019-07-16 07:35] LABS: ANISOCYTOSIS SLIGHT; LYMPHOCYTES % (MANUAL) 4 % (19-48); MONOCYTES % (MANUAL) 4 % (3.4-9.0); NEUTROPHILS % (MANUAL) 92 % (40-74); PLATELET ESTIMATE SLIGHTLY INCREASED; RBC MORPHOLOGY COMMENT NORMAL
[2019-07-16 07:36] LABS: PLATELET MORPHOLOGY COMMENT FEW EDTA CLUMPING
[2019-07-16] MEDS: ONDANSETRON HCL INJ 2MG/ML 2ML 2 MG/ML VIAL IV PRN (09:17)
[2019-07-16] MEDS: MORPHINE SULFATE INJ 4 MG/ML INJ 1ML IV PRN (09:17)
--- NOTE | 2019-07-16 12:45 | NUR ---
pt states she refuses normal saline and that she wants her test results from the md and wants to go home; told md would be called
--- NOTE | 2019-07-16 12:56 | NUR ---
JERMAINE CEDILLO CALLED AND NOTIFIED OF PT WANTING TO LEAVE AMA STATES SHE WILL COME AND SPEAK WITH PT
--- NOTE | 2019-07-16 14:24 | NUR ---
JERMAINE CEDILLO IN ROOM WITH PT
[2019-07-16 14:41] VITALS: BP 116/66
[2019-07-16] MEDS ORDERED: CEFTRIAXONE SOD 1 GM/NS 50 ML 50 ML IV ONE (14:45)
--- NOTE | 2019-07-16 16:34 | Discharge Summary ---
ADMISSION DIAGNOSES: 1. Pelvic mass with right adrenal gland nodule. 2. Hypertension. 3. Urinary tract infection with severe sepsis, present on admission. 4. Acute blood loss anemia, secondary to uterine bleeding. DISCHARGE DIAGNOSES: 1. Pelvic mass with right adrenal gland nodule. 2. Hypertension. 3. Urinary tract infection with severe sepsis, present on admission. 4. Acute blood loss anemia, secondary to uterine bleeding. HISTORY: Hypertension, endometriosis, gastric ulcers, and gastritis. SURGICAL HISTORY: Appendectomy. FAMILY HISTORY: The patient's sister had cancer. SOCIAL HISTORY: Noncontributory. HOSPITAL COURSE: A 74-year-old female admits with complaints of right lower quadrant abdominal cramping, that occurs every other month intermittently for a few days. She denies hematuria, dysuria, and fever. She still has a period every other month. She had a colonoscopy and ultrasound back in March 2019, which was negative per the patient and daughter report. Her PCP Dr. Dana Marroquin admitted for elevated WBC. Once admitted, the patient is refusing workup and wants to discharge home. She says she will follow up with Dr. Marroquin today and she does not want any prescriptions for home. On admission CT of the abdomen and pelvis showed large solid/partially necrotic mass in the pelvis, which appears to involve the uterus and extending to the cervix. This may represent cervical or endometrial neoplasm, indeterminate 1 cm hypodense nodule in the right adrenal gland, atrophic right kidney. On admission, WBC was 25.65 and hemoglobin was 6.92 units of PRBCs were ordered and transfused after which her hemoglobin went up to 8.6. The UA had high number of WBCs, so urine culture was sent and pending. The patient says she was treated with Macrobid with Dr. Marroquin just about 2 weeks ago. Again, she is refusing antibiotics and wants to discharge home. She did, however, agree to one dose of Rocephin prior to discharge as well as the Flagyl and Zosyn, which were given last night in the ER. The patient understands the risks and agrees to accept responsibility. She will follow up with primary care today per the patient and daughter report. Dictated by Nayana Delong, JERMAINE Peter Dangelo MD ROBERT/MODL /[id number]
== END 2019-07-16 14:57 | disposition home or self-care (01) | DRG 872 ==
LOC: ER 16:09 → ERHOLD 19:50
PROVIDERS: ADMIT Internal Medicine; ATTEND Internal Medicine
PROC: 30230N1 Transfusion of Nonautologous Red Blood Cells into Peripheral Vein, Open Approach (ICD-10-PCS; principal; 2019-07-16)
DX: A41.9 Sepsis, unspecified organism (principal); N39.0 Urinary tract infection, site not specified; D62 Acute posthemorrhagic anemia; R19.00 Intra-abdominal and pelvic swelling, mass and lump, unspecified site; R65.20 Severe sepsis without septic shock; K29.70 Gastritis, unspecified, without bleeding; N93.8 Other specified abnormal uterine and vaginal bleeding; Z53.29 Procedure and treatment not carried out because of patient's decision for other reasons; N26.1 Atrophy of kidney (terminal); I10 Essential (primary) hypertension
CPT/HCPCS: 36415; 74177; 80053; 81001; 82550; 82553; 83605; 84484; 85025; 86850; 86900; 86920; 87040; 87086; 87635; 93005; 99284; J0696; J2270; J2405; J2543; J7030; J7050; P9016